=== PATIENT | female | born 1960 | race Hispanic/Latino ===

== ENCOUNTER 2017-09-05 05:53 | Day surgery (SDC) | payer OTHER ==
[2017-09-05] MEDS ORDERED: DIPRIVAN 10 MG/ML IV ONE (07:38)
[2017-09-05] MEDS ORDERED: NACL 0.9% 1000 ML 1,000 ML IV SCH (08:00)
--- NOTE | 2017-09-05 08:01 | Anesthesia Day of Surgery ---
Anesthesia Day of Surgery - Day of Surgery Patient Examined: Yes Patient H&P Reviewed: Yes Patient is NPO: Yes
--- NOTE | 2017-09-05 08:01 | Anesthesia Consultation ---
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
[2017-09-05] MEDS ORDERED: WATER FOR IRRIG STERILE IR ONE (08:10)
--- NOTE | 2017-09-05 08:20 | Discharge Summary ---
Providers - Providers Attending physician: VISH MONTOYA Primary care physician: NAVEEN ADORNO Hospitalization Procedures: egd Hospital course: 57y.o. F presented to the hospital for an EGD. for eval for her dyspepsia and upcoming bariatric surgery. The patient tolerated the procedure well. Disposition: - TO HOME OR SELFCARE Core Measure Documentation - Palliative Care Palliative Care/ Comfort Measures: Not Applicable - Core Measures Any of the following diagnoses?: none Exam - Physical Exam Narrative exam: no change from prior - Constitutional Vitals: Temp Pulse Resp BP Pulse Ox 97.9 F 74 11 L 141/73 99 09/05/17 07:42 09/05/17 07:42 09/05/17 07:42 09/05/17 07:42 09/05/17 07:42 Plan Activity: other (no driving today) Additional Instructions: follow up for surgery Follow up with: NAVEEN ADORNO MD [Primary Care Provider] - 7 Days
--- NOTE | 2017-09-05 08:21 | Operative Report ---
Operative Report Operative Report: OPERATIVE REPORT - EGD DATE 09/05/17 SURGERY: Upper endoscopy. SURGEON: Dr. Aaron M.D. DATA ANALYTICS ANALYST: Dr. Issac Vences DO PRE OP DX:dyspepsia POST OP DX: small hiatal hernia TYPE OF ANESTHESIA: MAC. ESTIMATED BLOOD LOSS: None. COMPLICATIONS: None. SPECIMENS REMOVED: None. FINDINGS: 1. Small hiatal hernia. 2. Otherwise, normal esophagus, stomach and first portion of duodenum. INDICATIONS:INDICATION FOR PROCEDURE: Patient is a 57-year-old female with a long history of morbid obesity. She is planned to have a weight loss procedure and is here for preoperative planning EGD to ensure there are no anatomical abnormalities prior her procedure. PROCEDURE DETAILS: After consent was reviewed, patient was taken back to the operating room where patient was placed in the left lateral decubitus position and a bite block was placed in the mouth. After a time-out was called, MAC anesthesia was initiated. I then passed the endoscope into her oropharynx, into her esophagus, visualized the entire esophagus, which was all within normal limits. I then visualized the stomach and the first portion of the duodenum and there were no abnormalities I could clearly visualize. I then retroflexed the scope in the stomach and visualized the hiatus and I could see a small hiatal hernia. I then desufflated the stomach and removed the endoscope. Patient tolerated procedure well and was transferred to recovery room in good and stable condition.
[2017-09-05 09:05] VITALS: BP 130/76
--- NOTE | 2017-09-05 09:31 | Post Anesthesia Evaluation ---
- Post Anesthesia Evaluation Patient Participated: Yes Airway Patent: Yes Stable Respiratory Function: Yes Nausea/Vomiting: No Temp > 96.8F: Yes Pain Manageable: Yes Adequeate Hydration: Yes Anesthesia Complications: No
== END 2017-09-05 05:54 | disposition home or self-care (01) ==
LOC: GIO 05:53
PROVIDERS: ATTEND Specialist
DX: K30 Functional dyspepsia (principal); K44.9 Diaphragmatic hernia without obstruction or gangrene; I10 Essential (primary) hypertension; G43.909 Migraine, unspecified, not intractable, without status migrainosus; E66.01 Morbid (severe) obesity due to excess calories; Z68.39 Body mass index [BMI] 39.0-39.9, adult; Z85.828 Personal history of other malignant neoplasm of skin; Z90.710 Acquired absence of both cervix and uterus; Z96.641 Presence of right artificial hip joint; Z98.890 Other specified postprocedural states; Z79.899 Other long term (current) drug therapy; E78.00 Pure hypercholesterolemia, unspecified
CPT/HCPCS: 43235; J2704; J7030